=== PATIENT | male | born 2000 | race Caucasian/White ===

== ENCOUNTER 2023-06-12 19:14 | Inpatient (IN) ==
[2023-06-12 21:15] LABS: Urine Appearance Clear; Urine Bilirubin Negative (Negative); Urine Blood Negative (Negative); Urine Color Yellow; Urine Glucose Negative (Negative); Urine Ketones 2+ (Negative); Urine Nitrite Negative (Negative); Urine Protein Trace (Negative); Urine Specific Gravity 1.026 (1.002-1.030); Urine Urobilinogen Negative (Negative)
[2023-06-12 21:18] LABS: Urine Benzodiazepine Screen None Detected (None Detect); Urine Cannabinoids Screen None Detected (None Detect); Urine Opiates Screen None Detected (None Detect)
[2023-06-12 22:18] LABS: ABS Eosinophils 0.1 10^3/uL (0.0-0.5); ABS Lymphocytes 1.8 10^3/uL (1.0-4.8); ABS Monocytes 0.5 10^3/uL (0.0-1.1); ABS Nucleated RBC 0.01 10^3/ul; Eosinophil % 1.6 %; Hematocrit 45.9 % (38-53); Hemoglobin 16.1 g/dL (13.2-16.3); Lymphocyte % 20.8 %; Mean Corpuscular Hemoglobin 30.8 pg (27-33); Mean Platelet Volume 7.8 fL (7.5-11.2); Nucleated Red Blood Cells % 0.1 %/100WBC (0.0-0.8); Platelet Count 203 10^3/uL (150-450); Red Blood Count 5.22 10^6/uL (4.06-5.63); Red Cell Distribution Width 14.2 % (12-17); White Blood Count 8.5 10^3/uL (3.6-10.2)
[2023-06-12] MEDS ORDERED: OLANZapine 10 mg TAB*ODT PO PRN (22:18)
[2023-06-12 23:09] LABS: ALT 10 U/L (7-52); AST 17 U/L (13-39); Acetaminophen < 15 mcg/mL; Albumin 4.7 g/dL (3.2-5.2); Albumin/Globulin Ratio 2.4 (1-3); Alcohol, S < 13 mg/dL (<13); Alkaline Phosphatase 66 U/L (35-149); Anion Gap 11 mmol/L (2-16); Blood Urea Nitrogen 14 mg/dL (6-24); CO2 Carbon Dioxide 27 mmol/L (22-32); Calcium 9.5 mg/dL (8.6-10.3); Chloride 104 mmol/L (101-111); Creatinine, Serum 1.03 mg/dL (0.67-1.17); Glucose 127 mg/dL (70-100); Potassium 3.5 mmol/L (3.5-5.0); Salicylate < 2.50 mg/dL (<30); Sodium 142 mmol/L (135-145); Total Bilirubin 0.5 mg/dL (0.2-1.0); Total Protein 6.7 g/dL (6.4-8.9)
[2023-06-12 23:24] LABS: TSH Ultra Thyroid Stim Horm 1.24 mcIU/mL (0.34-5.60)
[2023-06-13] MEDS: Vitamin THERAPEUTIC TAB PO SCH (08:54)
[2023-06-13] MEDS ORDERED: OLANZapine 5 mg TAB *ODT PO PRN (14:13)
[2023-06-14] MEDS: Cholecalciferol (VIT D3) 1,000 unit TAB PO SCH (19:10)
[2023-06-18 15:05] LABS: CRP High Sensitivity < 0.20 mg/L (<2.00); Cholesterol 199 mg/dL; HDL Cholesterol 57.9 mg/dL; LDL Cholesterol 101 mg/dL; Triglycerides 203 mg/dL
[2023-06-18] MEDS: Gadoteridol (CONTRAST) 279.3 MG/ML 10 ML IV ONE (20:48)
[2023-06-19] MEDS: Al Hydrox/Mg Hydrox/Simet LIQ 30 ML UDC PO PRN (02:54)
[2023-06-20 10:46] VITALS: BP 137/85
== END 2023-06-20 12:06 | disposition home or self-care (01) | DRG 753 ==
LOC: ED 19:14 → EDHOLD 22:31 → BSU 22:38
PROVIDERS: ADMIT Psychiatry & Neurology Psychiatry; ATTEND Student in an Organized Health Care Education/Training Program